=== PATIENT | male | born 1970 | race Caucasian/White ===

== ENCOUNTER 2023-07-20 17:47 | Emergency (ER) | payer OTHER ==
[2023-07-20 17:52] VITALS: BP 156/80; PULSE 61; RESP 18; TEMP 98; BMI 30.4
[2023-07-20] MEDS ORDERED: KETOROLAC TROMETHAMINE 30 MG/1 ML VIAL IM ONE (18:29)
[2023-07-20] MEDS ORDERED: DEXAMETHASONE SOD PHOSPHATE 10 MG/1 ML VIAL IM ONE (18:29)
[2023-07-20] MEDS ORDERED: LIDOCAINE HCL 5% TOP OINTMENT 50 GM TUBE TP ONE (18:30)
[2023-07-20] MEDS ORDERED: LIDOCAINE 5% TOPICAL PATCH ONE (18:37)
[2023-07-20] MEDS ORDERED: KETOROLAC TROMETHAMINE 30 MG/1 ML VIAL ONE (18:37)
[2023-07-20] MEDS ORDERED: DEXAMETHASONE SOD PHOSPHATE 10 MG/1 ML VIAL ONE (18:37)
[2023-07-20] MEDS ORDERED: LIDOCAINE 5% TOPICAL PATCH TP ONE (18:50)
== END 2023-07-20 19:33 | disposition home or self-care (01) ==
LOC: JER 17:47 → JERFT 17:47
PROC: 3E0233Z Introduction of Anti-inflammatory into Muscle, Percutaneous Approach (ICD-10-PCS; principal; 2023-07-20)
PROC: 3E023GC Introduction of Other Therapeutic Substance into Muscle, Percutaneous Approach (ICD-10-PCS; 2023-07-20)
DX: M25.551 Pain in right hip (principal); R10.2 Pelvic and perineal pain; M62.838 Other muscle spasm; W10.9XXA Fall (on) (from) unspecified stairs and steps, initial encounter; Z20.822 Contact with and (suspected) exposure to COVID-19
CPT/HCPCS: 0241U-QW; 73502-TC-RT-FY; 99284-25; J1100

== ENCOUNTER 2023-09-29 10:18 | Emergency (ER) | payer OTHER ==
[2023-09-29 10:23] VITALS: RESP 18; TEMP 99.1; BMI 27.3
[2023-09-29 11:32] LABS: HEMATOCRIT 42.2 % (35.4-49); HEMOGLOBIN 14.4 GM/dL (11.7-16.9); MCH 30.6 pg (25.7-33.7); MCHC 34.1 g/dl (32.0-35.9); MEAN CELL VOLUME 89.8 fl (80-96); MEAN PLT VOLUME 8.6 fl (7.5-11.1); PLATELET COUNT 187 10^3/uL (134-434); RDW 13.2 % (11.9-15.9); WHITE BLOOD COUNT 5.1 K/mm3 (4.0-10.0)
[2023-09-29 11:37] LABS: CHLORIDE 100 mmol/L (98-107); SODIUM 129 mmol/L (136-145)
[2023-09-29 11:39] LABS: BLOOD UREA NITROGEN 11.6 mg/dL (7-18); CALCIUM 8.5 mg/dL (8.5-10.1); CO2 24 mmol/L (21-32); LIPASE 50 U/L (73-393)
[2023-09-29 11:40] LABS: GLUCOSE,RANDOM 166 mg/dL (74-106)
[2023-09-29 11:42] LABS: CREATININE 1.3 mg/dL (0.55-1.3); SGOT/AST 154 U/L (15-37)
[2023-09-29] MEDS ORDERED: ACETAMINOPHEN 1000 MG/100 ML BAG IVPB ONE (11:43)
[2023-09-29] MEDS ORDERED: ONDANSETRON 4 MG/2 ML VIAL IVPUSH ONE (11:43)
[2023-09-29 11:44] LABS: BILIRUBIN,TOTAL 0.4 mg/dL (0.2-1); TOT PROT 8.4 g/dl (6.4-8.2)
[2023-09-29 11:45] LABS: ALK PHOS 65 U/L (45-117)
[2023-09-29] MEDS ORDERED: ACETAMINOPHEN INJECTION 100 ML IVPB ONE (11:45)
[2023-09-29] MEDS ORDERED: ONDANSETRON 4 MG/2 ML VIAL ONE (11:45)
[2023-09-29 11:49] LABS: ANION GAP 5 mmol/L (4-13); POTASSIUM 7.1 mmol/L (3.5-5.1); SGPT/ALT 130 U/L (13-61)
[2023-09-29 11:59] LABS: ANISOCYTOSIS 0; HELMET CELLS 0; HOWELL-JOLLY BODIES 0; MACROCYTOSIS 0; OVALOCYTE 0; ROULEAU 0; SICKELED CELLS 0; TARGET CELLS 0; TEAR DROP CELLS 0; TOXIC GRANULATION 0
[2023-09-29] MEDS ORDERED: SODIUM CHLORIDE 1,000 ML IV STA (12:20)
[2023-09-29 13:45] LABS: POTASSIUM 3.7 mmol/L (3.5-5.1)
[2023-09-29 13:46] LABS: CALCIUM 8.2 mg/dL (8.5-10.1)
[2023-09-29 13:47] LABS: BLOOD UREA NITROGEN 11.4 mg/dL (7-18)
[2023-09-29] MEDS ORDERED: METOCLOPRAMIDE HCL INJECTION 10 MG/2 ML VIAL IVPB ONE (15:10)
[2023-09-29] MEDS ORDERED: METOCLOPRAMIDE HCL INJECTION 10 MG/2 ML VIAL ONE (15:17)
[2023-09-29 16:27] VITALS: BP 163/94; PULSE 87
[2023-09-29] MEDS ORDERED: KETOROLAC TROMETHAMINE 15 MG/ML VIAL IM ONE (16:44)
[2023-09-29] MEDS ORDERED: KETOROLAC TROMETHAMINE 15 MG/ML VIAL ONE (16:49)
== END 2023-09-29 18:03 | disposition home or self-care (01) ==
LOC: JER 10:18
PROC: 3E033NZ Introduction of Analgesics, Hypnotics, Sedatives into Peripheral Vein, Percutaneous Approach (ICD-10-PCS; principal; 2023-09-29)
PROC: 3E033GC Introduction of Other Therapeutic Substance into Peripheral Vein, Percutaneous Approach (ICD-10-PCS; 2023-09-29)
PROC: 3E033GC Introduction of Other Therapeutic Substance into Peripheral Vein, Percutaneous Approach (ICD-10-PCS; 2023-09-29)
PROC: 3E0337Z Introduction of Electrolytic and Water Balance Substance into Peripheral Vein, Percutaneous Approach (ICD-10-PCS; 2023-09-29)
PROC: 3E0233Z Introduction of Anti-inflammatory into Muscle, Percutaneous Approach (ICD-10-PCS; 2023-09-29)
DX: R10.31 Right lower quadrant pain (principal); R11.0 Nausea; R50.9 Fever, unspecified; R51.9 Headache, unspecified; K52.9 Noninfective gastroenteritis and colitis, unspecified
CPT/HCPCS: 36415; 74177-TC; 80048; 80053; 82962; 83690; 84484; 85025; 93005; 93010; 99285-25; Q9967